=== PATIENT | female | born 1980 ===

== ENCOUNTER 2021-06-06 05:56 | Day surgery (SDC) | payer OTHER ==
[~2021-06-06 05:56] MED LIST: ORTHO TRI-CYCL1 EACH
[2021-06-06] MEDS ORDERED: PERCOCET 5-3251 EACH PO (14:36)
[2021-06-06] MEDS ORDERED: NEURONTIN300 MG PO (14:36)
[2021-06-06] MEDS ORDERED: KETO10TA2 PO (14:37)
== END 2021-06-06 19:05 | disposition home or self-care (01) ==
LOC: CIR.AMB 05:56
PROVIDERS: ATTEND Surgery
DX: K64.8 Other hemorrhoids (principal); K64.4 Residual hemorrhoidal skin tags; Z20.822 Contact with and (suspected) exposure to COVID-19